=== PATIENT | female | born 1955 | race Caucasian/White ===

== ENCOUNTER 2017-04-27 21:05 | Inpatient (IN) | payer OTHER ==
[~2017-04-27] VITALS: Ht 157.5 cm; Wt 62.7 kg
[2017-04-27 21:25] VITALS: BP 152/87; PULSE 128; RESP 18; TEMP 97.6; O2SAT 96
[2017-04-27] MEDS ORDERED: HALOPERIDOL LACTATE 5 MG/ML AMP IM ONE (21:45)
[2017-04-27] MEDS ORDERED: TRAZ1TAB45 PO (21:49)
--- NOTE | 2017-04-27 21:58 | PD ---
HPI Chief Complaint: Psychiatric Symptoms Time Seen by Provider: 21:44 Travel History International Travel<30 days: No Contact w/Intl Traveler<30days: No Traveled to known affect area: No History of Present Illness HPI This is a 61-year-old female who presents under Gaona act initiated by the Police Department. According to her paperwork, "subject has become delusional and paranoid of her . She was screaming that he was the and posterior. She became irate and would not listen to simple instructions. She threw herself on the ground instead darted to flail around uncontrollably. She was restrained to prevent her from harming herself." The patient reports that her is attempting to steal her house. She does not want to elaborate any further on this. History is somewhat limited from the patient secondary to lack of cooperation and psychosis. Additional history was obtained by the nurse by the patient's Tim Kelley ([phone]). He reports that she has had "mental breakdowns" intermittently throughout the years that they have been . Over the past few weeks she has been acting paranoid, delusional, not sleeping well. He reports nightly wine use but denies any other illicit drug use. He reports a history of depression and anxiety. [facility] Past Medical History Anxiety: Yes Depression: Yes Tetanus Vaccination: Unknown Influenza Vaccination: No Past Surgical History Surgical History: No Previous Surgery Social History Alcohol Use: Yes (RED WINE EVERY NIGHT) Tobacco Use: Yes Substance Use: No Allergies-Medications (Allergen,Severity, Reaction): Coded Allergies: No Known Allergies (Unverified , 04/27/17) Reported Meds & Prescriptions Reported Meds & Active Scripts Active Reported Trazodone (Trazodone HCl) 150 Mg Tablet 150 Mg PO HS Review of Systems Except as stated in HPI: all other systems reviewed are Neg Physical Exam Narrative GENERAL: Well-developed well-nourished female in no acute distress SKIN: Warm and dry. HEAD: Atraumatic. Normocephalic. EYES: Pupils equal and round. No scleral icterus. No injection or drainage. ENT: No nasal bleeding or discharge. Mucous membranes pink and moist. NECK: Trachea midline. No JVD. CARDIOVASCULAR: Regular rate and rhythm. No murmur appreciated. RESPIRATORY: No accessory muscle use. Clear to auscultation. Breath sounds equal bilaterally. GASTROINTESTINAL: Abdomen soft, non-tender, nondistended. Hepatic and splenic margins not palpable. MUSCULOSKELETAL: No obvious deformities. No edema. NEUROLOGICAL: Awake and alert. No obvious cranial nerve deficits. Motor grossly within normal limits. Normal speech. PSYCHIATRIC: Insight and judgment appear limited. Flat affect. Data Data Last Documented VS Vital Signs Date Time Temp Pulse Resp B/P (MAP) Pulse Ox O2 Delivery O2 Flow Rate FiO2 04/28/17 07:41 98.4 100 17 112/72 (85) 99 Room Air Orders Orders Complete Blood Count With Diff (04/27/17 21:45) Comprehensive Metabolic Panel (04/27/17 21:45) Urinalysis - C+S If Indicated (04/27/17 21:45) Psych Screen (04/27/17 21:45) Haloperidol Inj (Haldol Inj) (04/27/17 21:45) Drug Screen, Random Urine (04/27/17 21:45) Alcohol (Ethanol) (04/27/17 21:45) Salicylates (Aspirin) (04/27/17 21:45) Tylenol (Acetaminophen) (04/27/17 21:45) Ct Brain W/O Iv Contrast(Rout) (04/27/17 ) ^ Sitter (04/27/17 22:20) Lorazepam Inj (Ativan Inj) (04/27/17 22:30) Diet Regular Basic (04/28/17 Breakfast) Labs Laboratory Tests Test 04/27/17 22:00 04/28/17 00:00 White Blood Count 6.9 TH/MM3 Red Blood Count 4.33 MIL/MM3 Hemoglobin 14.6 GM/DL Hematocrit 42.6 % Mean Corpuscular Volume 98.4 FL Mean Corpuscular Hemoglobin 33.8 PG Mean Corpuscular Hemoglobin Concent 34.4 % Red Cell Distribution Width 12.5 % Platelet Count 234 TH/MM3 Mean Platelet Volume 7.5 FL Neutrophils (%) (Auto) 82.9 % Lymphocytes (%) (Auto) 9.9 % Monocytes (%) (Auto) 6.5 % Eosinophils (%) (Auto) 0.1 % Basophils (%) (Auto) 0.6 % Neutrophils # (Auto) 5.7 TH/MM3 Lymphocytes # (Auto) 0.7 TH/MM3 Monocytes # (Auto) 0.4 TH/MM3 Eosinophils # (Auto) 0.0 TH/MM3 Basophils # (Auto) 0.0 TH/MM3 CBC Comment DIFF FINAL Differential Comment Blood Urea Nitrogen 8 MG/DL Creatinine 0.84 MG/DL Random Glucose 146 MG/DL Total Protein 7.6 GM/DL Albumin 4.1 GM/DL Calcium Level 9.0 MG/DL Alkaline Phosphatase 67 U/L Aspartate Amino Transf (AST/SGOT) 24 U/L Alanine Aminotransferase (ALT/SGPT) 24 U/L Total Bilirubin 0.5 MG/DL Sodium Level 130 MEQ/L Potassium Level 3.5 MEQ/L Chloride Level 96 MEQ/L Carbon Dioxide Level 21.6 MEQ/L Anion Gap 12 MEQ/L Estimat Glomerular Filtration Rate 69 ML/MIN Salicylates Level LESS THAN 1.7 MG/DL Acetaminophen Level LESS THAN 2.0 MCG/ML Ethyl Alcohol Level 43 MG/DL Urine Color LIGHT-YELLOW Urine Turbidity CLEAR Urine pH 5.5 Urine Specific [place] 1.002 Urine Protein NEG mg/dL Urine Glucose (UA) NEG mg/dL Urine Ketones NEG mg/dL Urine Occult Blood NEG Urine Nitrite NEG Urine Bilirubin NEG Urine Urobilinogen LESS THAN 2.0 MG/DL Urine Leukocyte Esterase MOD Urine RBC 1 /hpf Urine WBC 2 /hpf Urine Squamous Epithelial Cells <1 /hpf Microscopic Urinalysis Comment CULT NOT INDICATED Urine Opiates Screen NEG Urine Barbiturates Screen NEG Urine Amphetamines Screen NEG Urine Benzodiazepines Screen NEG Urine Cocaine Screen NEG Urine Cannabinoids Screen NEG MDM Medical Decision Making Medical Screen Exam Complete: Yes Emergency Medical Condition: Yes Medical Record Reviewed: Yes Differential Diagnosis Acute psychosis, encephalopathy, intracranial mass, substance induced mood disorder, schizophrenia, schizoaffective disorder, meningitis, delirium Narrative Course 61-year-old female presents under Gaona act for psychiatric evaluation of paranoia and delusional behavior for the past few weeks. The patient will be given Haldol. Plan is for basic lab work, urinalysis, CT brain Mental health screening discussed with the patient. Psychiatric screen ordered. Lab work and imaging studies have been reviewed. Her sodium is 130, chloride is 96, random glucose is 146. Alcohol level is 43. Otherwise unremarkable. The patient is medically clear for psychiatric disposition. Diagnosis Primary Impression: Altered mental status Qualified Codes: R41.82 - Altered mental status, unspecified Additional Impression: Paranoid delusion Vernon Dobson Apr 27, 2017 21:58
[2017-04-27] MEDS ORDERED: LORazepam 2 MG/ML VIAL IM ONE (22:30)
[2017-04-27 22:40] LABS: AUTOMATED NEUTROPHIL # 5.7 TH/MM3 (1.8-7.7); BASOPHIL % 0.6 % (0.0-2.0); EOSINOPHIL % 0.1 % (0.0-4.0); HEMATOCRIT 42.6 % (35.0-46.0); HEMO FLAGS DIFF FINAL; LYMPH % 9.9 % (9.0-44.0); LYMPHOCYTE # 0.7 TH/MM3 (1.0-4.8); MEAN CELL VOLUME 98.4 FL (80.0-100.0); MEAN CORPUSCULAR HEMOGLOBIN 33.8 PG (27.0-34.0); MEAN CORPUSCULAR HGB CONC 34.4 % (32.0-36.0); MONO % 6.5 % (0.0-8.0); NEUT % 82.9 % (16.0-70.0); PLATELET COUNT 234 TH/MM3 (150-450); RED BLOOD COUNT 4.33 MIL/MM3 (4.00-5.30); RED CELL DISTRIBUTION WIDTH 12.5 % (11.6-17.2); WHITE BLOOD COUNT 6.9 TH/MM3 (4.0-11.0)
--- NOTE | 2017-04-27 23:01 | RADRPT ---
EXAM DATE/TIME: 04/27/2017 22:49 [facility] COMPARISON: No previous studies available for comparison. INDICATIONS : Altered mental status. RADIATION DOSE: 34.43 CTDIvol (mGy) MEDICAL HISTORY : None SURGICAL HISTORY : None. ENCOUNTER: Initial ACUITY: 1 day PAIN SCALE: 0/10 LOCATION: cranial TECHNIQUE: Multiple contiguous axial images were obtained of the head. Using automated exposure control and adj ustment of the mA and/or kV according to patient size, radiation dose was kept as low as reasonably a chievable to obtain optimal diagnostic quality images. DICOM format image data is available electro nically for review and comparison. FINDINGS: CEREBRUM: The ventricles are normal for age. No evidence of midline shift, mass lesion, hemorrhage or acute in farction. No extra-axial fluid collections are seen. POSTERIOR FOSSA: The cerebellum and brainstem are intact. The 4th ventricle is midline. The cerebellopontine angle i s unremarkable. EXTRACRANIAL: The visualized portion of the orbits is intact. SKULL: The calvaria is intact. No evidence of skull fracture. CONCLUSION: Negative noncontrast head CT. Leodan Mcgraw MD on April 27, 2017 at 22:59 Board Certified Radiologist. This report was verified electronically.
[2017-04-27 23:08] LABS: ANION GAP 12 MEQ/L (5-15)
[2017-04-27 23:24] LABS: ALKALINE PHOSPHATASE 67 U/L (45-117); ALT (GPT) 24 U/L (10-53); AST (GOT) 24 U/L (15-37); BICARBONATE 21.6 MEQ/L (21.0-32.0); BLOOD UREA NITROGEN 8 MG/DL (7-18); CHLORIDE 96 MEQ/L (98-107); GLOMERULAR FILTRATION RATE 69 ML/MIN (>89); POTASSIUM 3.5 MEQ/L (3.5-5.1); SODIUM (NA) 130 MEQ/L (136-145); TOTAL BILIRUBIN ADULT 0.5 MG/DL (0.2-1.0)
[2017-04-27 23:25] LABS: ACETAMINOPHEN LESS THAN 2.0 MCG/ML (10.0-30.0); ALCOHOL 43 MG/DL (0-5)
[2017-04-28 00:23] LABS: BLOOD, URINE NEG (NEG); GLUCOSE,URINE NEG (NEG); KETONE, URINE NEG (NEG); NITRITE,URINE NEG (NEG); PH, URINE 5.5 (5.0-8.5); SQUAMOUS EPITHELIAL CELL URINE <1 /hpf (0-5); URINE COLOR LIGHT-YELLOW (YELLW/STRAW)
[2017-04-28 00:27] LABS: COMMENT (UR) CULT NOT INDICATED; CULTURE IF INDICATED CULT NOT INDICATED
[2017-04-28 07:41] VITALS: BP 112/72; PULSE 100; RESP 17; TEMP 98.4; O2SAT 99
[2017-04-28 18:24] VITALS: BP 112/75; PULSE 113; RESP 20; O2SAT 98
[2017-04-28 22:04] VITALS: BP 128/77; PULSE 96; RESP 16; O2SAT 99
[2017-04-29 02:13] VITALS: BP 120/74; PULSE 91; RESP 17; O2SAT 97
[2017-04-29 06:14] VITALS: BP 109/57; PULSE 94; RESP 18; O2SAT 96
[2017-04-29] MEDS ORDERED: diphenhydrAMINE HCL 50 MG/ML VIAL IM PRN (10:00)
[2017-04-29] MEDS ORDERED: LORazepam 1 MG TAB PO PRN (10:00)
[2017-04-29] MEDS ORDERED: LORazepam 2 MG/ML VIAL IM PRN (10:00)
[2017-04-29] MEDS ORDERED: ACETAMINOPHEN 325 MG TAB PO PRN (10:00)
[2017-04-29] MEDS ORDERED: ALUMINUM/MAGNESIUM/SIMETH 30 ML CUP PO PRN (10:00)
[2017-04-29] MEDS ORDERED: MAGNESIUM HYDROXIDE SUSP 30 ML CUP PO PRN (10:00)
[2017-04-29] MEDS ORDERED: diphenhydrAMINE HCL 50 MG CAP PO PRN (10:00)
--- NOTE | 2017-04-29 10:17 | HHI.HP ---
Provisional Diagnosis Admission Date [place] I. Brief psychotic disorder Rule out bipolar disorder Certification of Person's Competence To Provide Express and Informed Consent I have personally examined Karmen Kelley , a person being served at [facility] on, Apr 29, 2017 10:03. Express and informed consent means consent voluntarily given in writing, by a competent person, after sufficient explanation and disclosure of the subject matter involved to enable the person to make a knowing and willful decision without any element of force, fraud, deceit, duress, or other form of constraint or coercion. This person is 18 years of age or older, is not now known to be incompetent to consent to treatment with a guardian advocate, and does not have a health care surrogate or proxy currently making medical treatment decisions. I have found this person to be one of the following: [] Competent to provide express and informed consent, as defined above, for voluntary admission to this facility and is competent to provide express and informed consent for treatment. He/she has the consistent capacity to make well reasoned, willful, and knowing decisions concerning his or her medical or mental health treatment. The person fully and consistently understands the purpose of the admission for examination/placement and is fully capable of personally exercising all rights assured [place] [x] Incompetent to provide express and informed consent to voluntary admission, and this is incompetent to provide express and informed consent to treatment. The person must be transferred to involuntary status and a petition for a guardian advocate filed with the Circuit Court. [] Refusing to provide express and informed consent to voluntary admission but is competent to provide express and informed consent for treatment. The person must be discharged or transferred to involuntary status. Form shall be completed within 24 hours of a person's arrival at the receiving facility and filed in the clinical record of each person: 1. Admitted on a voluntary basis 2. Permitted to provide express and informed consent to his/her own treatment 3. Allowed to transfer from involuntary to voluntary status 4. Prior to permitting a person to consent to his or her own treatment after having been previously found incompetent to consent to treatment. History of Present Illness Capacity: Lacks Capacity HPI This is a 61-year-old female presenting under a Gaona act for bizarre, psychotic and inappropriate behavior. Apparently long force man was called to her home where the patient was observed to be delusional, with paranoid ideations regarding her own . She was repeatedly screaming to law enforcement that he was "the master". She became irate and would not cooperate with simple requests. She threw herself on the ground and began to flail unnecessarily. She was restrained by law enforcement to prevent harm to herself. She has exclaimed that her is trying to steal her home. Patient's reports this is not the first psychotic episode over the course of their marriage. She has had multiple breakdowns in the past. Patient is a poor historian and unable to provide this physician with a cogent history. She does present as paranoid, easily agitated, unable to sleep. Rapid speech and flight of ideas. She remains paranoid regarding her and the care we are attempting to provide her. She is unable to care for herself and her is unable to care for her. Review of Systems Except as stated in HPI: all other systems reviewed are Neg Past Psych History Psychological trauma history Denied Violence risk - others (6 mos) High Violence risk - self (6 mos) High Substance Abuse History Drugs/Alcohol past 12 months Drinks wine nightly but states she does not abuse alcohol or drugs. Past Family Social History Coded Allergies: No Known Allergies (Unverified , 04/27/17) Reported Medications Trazodone (Trazodone) 150 Mg Tablet, 150 MG PO HS for Control Depression, #30 TAB 0 Refills 04/27/17 Family History Positive for mood disorders. Social History to her of many years. Patient is unemployed. Denies a history of alcohol or drug abuse. Does not reportedly receive disability for her obvious mental disorders. Patient's Strengths (min. 2) Supportive and has access to healthcare. Physical Exam GENERAL: SKIN: Warm and dry. HEAD: Normocephalic. EYES: No scleral icterus. No injection or drainage. NECK: Supple, trachea midline. No JVD or lymphadenopathy. CARDIOVASCULAR: Regular rate and rhythm without murmurs, gallops, or rubs. RESPIRATORY: Breath sounds equal bilaterally. No accessory muscle use. GASTROINTESTINAL: Abdomen soft, non-tender, nondistended. MUSCULOSKELETAL: No cyanosis, or edema. BACK: Nontender without obvious deformity. No CVA tenderness. Vital Signs Vital Signs Date Time Temp Pulse Resp B/P (MAP) Pulse Ox O2 Delivery O2 Flow Rate FiO2 04/29/17 06:14 94 18 109/57 (74) 96 Room Air 04/28/17 07:41 98.4 Mental Status Examination Speech: Rapid Orientation: x3 Memory: Unremarkable Thought Process: Flight of Ideas, Loose Association Thought Content: Bizarre thinking, Paranoid Hallucination Type: None Attention and Concentration: Abnormal Suicidal Ideation: No Previous Suicide Attempts: No Homicidal Ideation: No Previous Homicide Attempts: No Insight: Poor Judgment: Impulsive Affect: Irritable Affect if Inappropriate: Labile Mood: Irritable Motor Activity: Normal gait Assessment & Plan Problem List: (1) Brief psychotic disorder ICD Codes: F23 - Brief psychotic disorder Assessment & Plan Estimated LOS: days 61-year-old female brought in under a Gaona act for delusional thinking of a paranoid nature and agitated behavior. Behavior is felt to be impulsive and dangerous to patient as well as . Patient's flailing behavior is impulsive and risks harming herself and her . She does not recognize people are trying to assist her and is fighting against them. She is obviously unable to care for herself and for these reasons she is being admitted for further evaluation and treatment. This physician has ordered a CBC and comprehensive metabolic panel to determine if any infectious process or metabolic process is causing or contributing to her psychosis. Furthermore, this physician has ordered thyroid stimulating hormone, vitamin B-12 and vitamin D levels to determine if deficiencies in these areas are causing or contributing to her psychosis. We are also obtaining a EKG to determine her cardiac conduction status prior to possibly adversely affecting her cardiac conduction by instituting psychotropic medications. This physician has asked for a psychiatric second opinion regarding the patient's competence because I feel she is not competent to make medical or mental health decisions. I spoke with the patient's nurse, Karmen, who informs me the patient has been bizarre and psychotic and intrusive and threatening since she got to the emergency department. This physician will also involve case management to obtain further information from the and assist with disposition planning and treatment. Javi Hood MD Apr 29, 2017 10:17
[2017-04-29] MEDS ORDERED: ZIPRASIDONE MESYLATE 20 MG VIAL IM ONE ×2 (11:08→11:45)
[2017-04-29] MEDS ORDERED: diphenhydrAMINE HCL 50 MG/ML VIAL IM ONE (11:45)
[2017-04-29] MEDS ORDERED: LORazepam 2 MG/ML VIAL IM ONE (11:45)
[2017-04-29 13:58] VITALS: PULSE 93; RESP 18; TEMP 97.6; O2SAT 97
[2017-04-29 14:00] VITALS: BP 139/79
--- NOTE | 2017-04-29 14:54 | PD.PSY.CON ---
Provisional Diagnosis Admission Date Apr 29, 2017 at 10:00 [place] I. Brief psychotic disorder, Rule out bipolar disorder, alcohol use disorder History of Present Illness Service Psychiatry Consult Requested By Reason for Consult Second opinion Primary Care Physician DO URVASHI Flores This is a 61-year-old female presenting under a Gaona act for bizarre, psychotic and inappropriate behavior. Apparently long force man was called to her home where the patient was observed to be delusional, with paranoid ideations regarding her own . She was repeatedly screaming to law enforcement that he was "the master". She became irate and would not cooperate with simple requests. She threw herself on the ground and began to flail unnecessarily. She was restrained by law enforcement to prevent harm to herself. She has exclaimed that her is trying to steal her home.Patient 's reports this is not the first psychotic episode over the course of their marriage. She has had multiple breakdowns in the past. Patient is a poor historian and unable to provide this physician with a cogent history. She does present as paranoid, easily agitated, unable to sleep. Rapid speech and flight of ideas. She remains paranoid regarding her and the care we are attempting to provide her. She is unable to care for herself and her is unable to care for her. The patient is a 61 years old woman, domiciled her in [facility] , unemployed, without any previous psychiatric history, alcohol use disorder, no previous psychiatric hospitalizations, no previous suicidal attempts, medical history, who was brought to the hospital on the Gaona act delusional and paranoid ideations against her . Patient was consulted to psychiatry for second opinion. Patient is found in her bed in [address] unit, she is calm, cooperative, she says that she doesn't know the reason she is in the hospital. She says that most probably she was brought due to her anxiety. Patient doesn't seem to have any insight of her recent psychotic behavior. She denies suicidal and homicidal ideation, she denies visual and auditory hallucinations. Patient is fully oriented 3. Review of Systems Respiratory: DENIES: Apneas, Cough, Snoring, Wheezing, Hemoptysis, Sputum production, Shortness of breath Cardiovascular: DENIES: Chest pain, Palpitations, Syncope, Dyspnea on Exertion , PND, Lower Extremity Edema, Orthopnea, Claudication Gastrointestinal: DENIES: Abdominal pain, Black stools, Bloody stools, Constipation, Diarrhea, Nausea, Vomiting, Difficulty Swallowing, Anorexia Genitourinary: DENIES: Abnormal vaginal bleeding, Dysmenorrhea, Dyspareunia, Sexual dysfunction, Urinary frequency, Urinary incontinence, Urgency, Hematuria , Dysuria, Nocturia, Vaginal discharge Integumentary: DENIES: Abnormal pigmentation, Pruritus, Rash, Nail changes, Breast masses, Breast skin changes, Nipple discharge Hematologic/lymphatic: DENIES: Bruising, Lymphadenopathy Immunologic/allergic: DENIES: Eczema, Urticaria Neurologic: DENIES: Abnormal gait, Headache, Localized weakness, Paresthesias, Seizures, Speech Problems, Tremor, Poor Balance Psychiatric: DENIES: Anxiety, Confusion, Mood changes, Depression, Hallucinations, Agitation, Suicidal Ideation, Homicidal Ideation, Delusions Past Family Social History Coded Allergies: No Known Allergies (Unverified , 04/27/17) Reported Medications Trazodone (Trazodone) 150 Mg Tablet, 150 MG PO HS for Control Depression, #30 TAB 0 Refills 04/27/17 Current Medications Medications (Trade) Dose Ordered Sig/Manuel Route Start Time Stop Time Status Last Admin (Ativan) 1 mg Q6H PRN PO 04/29/17 10:00 (Ativan Inj) 1 mg Q6H PRN IM 04/29/17 10:00 (Benadryl) 50 mg HS PRN PO 04/29/17 10:00 (Benadryl Inj) 50 mg HS PRN IM 04/29/17 10:00 (Tylenol) 650 mg Q4H PRN PO 04/29/17 10:00 (Milk Of Magnesia Liq) 30 ml DAILY PRN PO 04/29/17 10:00 (Mag-Al Plus Susp Liq) 30 ml Q6H PRN PO 04/29/17 10:00 Patient's Strengths (min. 2) Supportive and has access to healthcare. Physical Exam Vital Signs Vital Signs Date Time Temp Pulse Resp B/P (MAP) Pulse Ox O2 Delivery O2 Flow Rate FiO2 04/29/17 14:00 139/79 (99) 04/29/17 13:58 97.6 93 18 97 04/29/17 06:14 Room Air Mental Status Examination Appearance woman appearing, calm and cooperative Speech: Unremarkable Orientation: x3 Memory: Unremarkable Thought Process: Flight of Ideas, Goal Directed, Loose Association Thought Content: Bizarre thinking, Paranoid Hallucination Type: None Attention and Concentration: Abnormal Suicidal Ideation: No Previous Suicide Attempts: No Homicidal Ideation: No Previous Homicide Attempts: No Insight: Poor Judgment: Impulsive Affect: Irritable Affect if Inappropriate: Labile Mood: Irritable Motor Activity: Normal gait Assessment & Plan Problem List: (1) Brief psychotic disorder ICD Codes: F23 - Brief psychotic disorder Assessment & Plan: I have seen and examined this patient, reviewed the documentation, I agree and concur with Dr. Hood's assessment and plan. Consult appreciated. Assessment & Plan Estimated LOS: Ac Arrieta MD Apr 29, 2017 14:54
[2017-04-30 05:38] VITALS: BP 122/62; PULSE 101; RESP 16; TEMP 98.3
[2017-04-30] MEDS ORDERED: LEVOTHYROXINE SODIUM 75 MCG TAB PO SCH (06:00)
[2017-04-30 10:51] LABS: AUTOMATED NEUTROPHIL # 5.2 TH/MM3 (1.8-7.7); BASOPHIL # 0.1 TH/MM3 (0-0.2); BASOPHIL % 0.7 % (0.0-2.0); EOSINOPHIL # 0.1 TH/MM3 (0-0.4); EOSINOPHIL % 1.1 % (0.0-4.0); HEMATOCRIT 43.9 % (35.0-46.0); HEMO FLAGS DIFF FINAL; LYMPH % 18.8 % (9.0-44.0); LYMPHOCYTE # 1.4 TH/MM3 (1.0-4.8); MEAN CELL VOLUME 100.9 FL (80.0-100.0); MEAN CORPUSCULAR HEMOGLOBIN 34.5 PG (27.0-34.0); MEAN CORPUSCULAR HGB CONC 34.2 % (32.0-36.0); MONO % 8.4 % (0.0-8.0); PLATELET COUNT 223 TH/MM3 (150-450); RED BLOOD COUNT 4.36 MIL/MM3 (4.00-5.30); RED CELL DISTRIBUTION WIDTH 12.6 % (11.6-17.2); WHITE BLOOD COUNT 7.3 TH/MM3 (4.0-11.0)
[2017-04-30 11:05] LABS: ALT (GPT) 33 U/L (10-53); ANION GAP 10 MEQ/L (5-15); AST (GOT) 32 U/L (15-37); BICARBONATE 28.3 MEQ/L (21.0-32.0); BLOOD UREA NITROGEN 10 MG/DL (7-18); CHLORIDE 95 MEQ/L (98-107); GLOMERULAR FILTRATION RATE 74 ML/MIN (>89); POTASSIUM 3.7 MEQ/L (3.5-5.1); SODIUM (NA) 133 MEQ/L (136-145)
[2017-04-30 11:51] LABS: ALKALINE PHOSPHATASE 61 U/L (45-117); HDL CHOLESTEROL 149.9 MG/DL (40.0-60.0); LDL CHOLESTEROL 61 MG/DL (0-99); TOTAL BILIRUBIN ADULT 0.6 MG/DL (0.2-1.0)
--- NOTE | 2017-04-30 14:23 | HHI.DS ---
Psychiatry Discharge Summary Inpatient Psychiatric care?: Yes Advance Directive: No Reason Not Provided: Due to Patient Condition Mental Health AdvanceDirective: No Health Care Proxy: No Admission Admission Date Apr 29, 2017 at 10:00 Admission Diagnosis: (1) Brief psychotic disorder ICD Code: F23 - Brief psychotic disorder Brief History This is a 61-year-old female presenting under a Ga[place] act for bizarre, psychotic and inappropriate behavior. Apparently long force man was called to her home where the patient was observed to be delusional, with paranoid ideations regarding her own . She was repeatedly screaming to law enforcement that he was "the master". She became irate and would not cooperate with simple requests. She threw herself on the ground and began to flail unnecessarily. She was restrained by law enforcement to prevent harm to herself. She has exclaimed that her is trying to steal her home.Patient 's reports this is not the first psychotic episode over the course of their marriage. She has had multiple breakdowns in the past. Patient is a poor historian and unable to provide this physician with a cogent history. She does present as paranoid, easily agitated, unable to sleep. Rapid speech and flight of ideas. She remains paranoid regarding her and the care we are attempting to provide her. She is unable to care for herself and her is unable to care for her. The patient is a 61 years old woman, domiciled her in [facility] , unemployed, without any previous psychiatric history, alcohol use disorder, no previous psychiatric hospitalizations, no previous suicidal attempts, medical history, who was brought to the hospital on the Gaona act delusional and paranoid ideations against her . Patient was consulted to psychiatry for second opinion. Patient is found in her bed in [address] unit, she is calm, cooperative, she says that she doesn't know the reason she is in the hospital. She says that most probably she was brought due to her anxiety. Patient doesn't seem to have any insight of her recent psychotic behavior. She denies suicidal and homicidal ideation, she denies visual and auditory hallucinations. Patient is fully oriented 3. Tobacco Use In Past 30 Days: 4 or Less Cigarettes/Day Alcohol Use: 4 or More Times Per Week Hospital Course Patient was admitted yesterday in the psychiatric unit due to psychotic and disorganized behavior. Psychosocial and psychiatric assessments were performed. Appropriate safety measures were taken. At the beginning patient was kind of disorganized, paranoid, tangential. However, she was redirectable, patient was not started in psychotropics immediately with the idea that acute alcohol intoxication could be related with her initial presentation. On longitudinal observation in the ER, patient was appropriate, calm, cooperative, agitation or aggressive behavior reported. On psychiatric reevaluation today patient resents logical, coherent and relevant. He ended 3, attentive, without fluctuation of consciousness, no gross cognitive impairment present. MS is 30. She reports good mood, denies depression, denies anxiety, denies alexi psychosis, denies suicidal and homicidal ideation. Patient seems to be motivated to continue treatment for alcohol and counseling in [facility]. Results Blood Pressure 122 / 62 Vital Signs Date Time Temp Pulse Resp B/P (MAP) Pulse Ox O2 Delivery O2 Flow Rate FiO2 04/30/17 05:38 98.3 101 16 122/62 (82) 04/29/17 13:58 97 04/29/17 06:14 Room Air Laboratory Tests Test 04/27/17 22:00 04/28/17 00:00 04/30/17 07:58 Neutrophils (%) (Auto) 82.9 % (16.0-70.0) 71.0 % (16.0-70.0) Lymphocytes # (Auto) 0.7 TH/MM3 (1.0-4.8) Random Glucose 146 MG/DL (74-106) 126 MG/DL (74-106) Sodium Level 130 MEQ/L (136-145) 133 MEQ/L (136-145) Chloride Level 96 MEQ/L (98-107) 95 MEQ/L (98-107) Estimat Glomerular Filtration Rate 69 ML/MIN (>89) 74 ML/MIN (>89) Salicylates Level LESS THAN 1.7 MG/DL Acetaminophen Level LESS THAN 2.0 MCG/ML Ethyl Alcohol Level 43 MG/DL (0-5) Urine Leukocyte Esterase MOD (NEG) Mean Corpuscular Volume 100.9 FL (80.0-100.0) Mean Corpuscular Hemoglobin 34.5 PG (27.0-34.0) Monocytes (%) (Auto) 8.4 % (0.0-8.0) Cholesterol Level 234 MG/DL (120-200) HDL Cholesterol 149.9 MG/DL (40.0-60.0) 25-Hydroxy Vitamin D Total 26.2 ng/ML (30-100) Thyroid Stimulating Hormone 3rd Gen 6.070 uIU/ML (0.358-3.740) Laboratory Results Test 04/30/17 07:58 Cholesterol Level 234 MG/DL (120-200) HDL Cholesterol 149.9 MG/DL (40.0-60.0) LDL Cholesterol 61 MG/DL (0-99) Triglycerides Level 116 MG/DL (42-150) Summary of Procedures none Imaging Last Impressions Head CT 04/27/17 0000 Signed Impressions: Service Date/Time: Thursday, April 27, 2017 22:49 - CONCLUSION: Negative noncontrast head CT. Leodan Mcgraw MD Pending results at discharge: No Medications # of Antipsychotic meds at D/C: 0 Approp Antipsych med options 1 - Minimum of three failed multiple trials of monotherapy. 2 - Documented plan to taper to monotherapy due to previous use of multiple meds OR cross-taper in progress at D/C. 3 - Documentation of augmentation of Clozapine. 4 - Justification other than those listed in allowable values 1-3, document here : Discharge Discharge Date: Apr 30, 2017 Discharge Diagnosis: (1) Brief psychotic disorder ICD Code: F23 - Brief psychotic disorder Pt Condition on Discharge: Stable Discharge Disposition: Discharge Home Discharge Instructions Diet Instructions: As Tolerated, No Restrictions Activities you can perform: Regular-No Restrictions Scheduled Appointment: Guillaume Foster Appointment Date: May 04, 2017 Appointment Time: 7:30 am Discharge Time > 30 minutes Mental Status Examination Memory: Unremarkable Attention and Concentration: Abnormal Suicidal Ideation: No Previous Suicide Attempts: No Homicidal Ideation: No Previous Homicide Attempts: No Mood: Irritable Discharge/Advance Care Plan Health Problems: (1) Brief psychotic disorder Goals to promote your health * To prevent worsening of your condition and complications * To maintain your health at the optimal level Directions to meet your goals Take your medications as prescribed Follow your dietary instruction Follow activity as directed Keep your appointments as scheduled Take your immunizations and boosters as scheduled If your symptoms worsen call your PCP, if no PCP go to Urgent Care Center or Emergency Room For 16/02 questions related to your inpatient stay or results of tests pending at discharge, please contact Dr. Ac Cole at Smoking is Dangerous to Your Health. Avoid second hand smoking Ac Cole MD Apr 30, 2017 14:23
[2017-04-30] MEDS ORDERED: TRAZ1TAB45 PO (14:42)
--- NOTE | 2017-04-30 14:43 | EKG ---
Date Performed: 04/30/2017 Time Performed: 08:05:10 PTAGE: 61 years EKG: SINUS TACHYCARDIA POSSIBLE RIGHT ATRIAL ENLARGEMENT ABNORMAL RHYTHM ECG NO PREVIOUS TRACING DOCTOR: Micha Newell Interpretating Date/Time 04/30/2017 14:37:31
[2017-04-30 16:46] LABS: HEMOGLOBIN A1b 0.7 %; HEMOGLOBIN Ao 86.5 %; HEMOGLOBIN LA1C 2.1 %; HEMOGLOBIN P3 3.4 %
== END 2017-04-30 17:25 | disposition home or self-care (01) | DRG 885 ==
LOC: NEPD 21:05 → NEDA 04-29 10:00 → H270 04-29 11:32
PROVIDERS: ADMIT Psychiatry & Neurology Psychiatry; ATTEND Psychiatry & Neurology Psychiatry
DX: F23 Brief psychotic disorder (principal); Z72.89 Other problems related to lifestyle; Y90.2 Blood alcohol level of 40-59 mg/100 ml; Z72.0 Tobacco use
CPT/HCPCS: 70450; 80053; 80061; 80307; 81001; 82306; 82607; 83036; 84443; 85025; 93005; 96372; J1200; J1630; J2060; J3486; Q0163